=== PATIENT | male | born 1945 | race Caucasian/White ===

== ENCOUNTER → 2020-08-26 | Outpatient (CLI) | payer OTHER ==
[~2020-08-26] MED LIST: ALOG25TA2 PO; AMLO-150 PO; ATOR40TA78 PO; BUME0.5T2 PO; CYAN50009 PO; EMPA25TA PO; FINA5TAB4 PO; GLIP10TA13 PO; LISI-170 PO; MAGN420T PO; METF1000 PO; OMEP40CA8 PO; PROP60CA PO; ZOLM2.5T31 PO; cholecalciferol PO
== END | disposition home or self-care (01) ==
LOC: WOUND 11:33
PROVIDERS: ATTEND Nurse Practitioner Family
DX: Z01.818 Encounter for other preprocedural examination (principal); C67.9 Malignant neoplasm of bladder, unspecified; I45.10 Unspecified right bundle-branch block; Z20.822 Contact with and (suspected) exposure to COVID-19
CPT/HCPCS: 99203